=== PATIENT | female | born 1955 | race Caucasian/White ===

== ENCOUNTER 2022-02-03 14:01 | Emergency (ER) | payer OTHER | END 2022-02-03 14:54 | disposition home or self-care (01) | LOC: NAV ERS 14:01 | DX: M20.011 Mallet finger of right finger(s) (principal); K21.9 Gastro-esophageal reflux disease without esophagitis; W23.1XXA Caught, crushed, jammed, or pinched between stationary objects, initial encounter; Z79.899 Other long term (current) drug therapy | CPT/HCPCS: 29130 ==